=== PATIENT | female | born 1980 | race Two or more races ===

== ENCOUNTER 2017-12-10 12:04 | Emergency (ER) | payer OTHER ==
[~2017-12-10] VITALS: Ht 162.6 cm; Wt 47.6 kg
[2017-12-10] MEDS ORDERED: IRON236 MG (12:51)
== END 2017-12-10 13:59 | disposition home or self-care (01) ==
LOC: ER 12:04
DX: H66.92 Otitis media, unspecified, left ear (principal)

== ENCOUNTER → 2018-01-03 | Emergency (ER) | payer OTHER ==
[~2018-01-03] VITALS: Ht 152.4 cm; Wt 43.1 kg
[~2018-01-03] MED LIST: IRON236 MG
== END | disposition home or self-care (01) ==
LOC: ER 19:39
DX: S90.31XA Contusion of right foot, initial encounter (principal); W22.8XXA Striking against or struck by other objects, initial encounter; Y93.89 Activity, other specified; Y92.59 Other trade areas as the place of occurrence of the external cause; Y99.8 Other external cause status

== ENCOUNTER 2019-01-05 14:24 | Emergency (ER) | payer OTHER ==
[~2019-01-05] VITALS: Ht 152.4 cm; Wt 43.1 kg
[2019-01-05] MEDS ORDERED: DICLOFENAC SODI50 MG PO (18:50)
[2019-01-05] MEDS ORDERED: FLONASE ALLERG9.9 ML NASAL (18:50)
[2019-01-05] MEDS ORDERED: AIRBORNE EFFER1 EACH PO (18:50)
== END 2019-01-05 19:24 | disposition home or self-care (01) ==
LOC: ER 14:24
DX: B34.9 Viral infection, unspecified (principal); R09.81 Nasal congestion

== ENCOUNTER 2019-01-07 01:07 | Emergency (ER) | payer OTHER ==
[~2019-01-07] VITALS: Ht 152.4 cm; Wt 43.1 kg
[~2019-01-07 01:07] MED LIST changes: +AIRBORNE EFFER1 EACH PO; +DICLOFENAC SODI50 MG PO; +FLONASE ALLERG9.9 ML NASAL
[2019-01-07] MEDS ORDERED: DOLOGESIC 500-1 EACH PO (04:48)
[2019-01-07] MEDS ORDERED: PEPCID40 MG PO (04:48)
== END 2019-01-07 05:10 | disposition home or self-care (01) ==
LOC: ER 01:07
DX: B34.9 Viral infection, unspecified (principal); R10.13 Epigastric pain; M54.89 Other dorsalgia